=== PATIENT | female | born 1950 | race Caucasian/White ===

== ENCOUNTER → 2016-07-30 | Outpatient (CLI) | payer OTHER ==
[~2016-07-30] MED LIST: ALBU1AER9 INH; ASPI1TAB83 PO; B-COTAB18 PO; BACL10TA PO; BUPR100T8 PO; CALC-393 PO; CHOL1CAP30 PO; CLX20 PO; COEN1CAP46; FLUT0.15 NAE; GLUCTAB7 PO; INSUINJ7 SC; LIRA18IN SC; LOSA50TA6 PO; LPT/20 PO; METF1TAB85 PO; METO1TAB66 PO; MISC1CAP58 PO; MONT1TAB3 PO; MULT-877 PO; NVLNI SC; OMEGCAP2 PO; OMEP20CA59 PO; ULT/50 PO; VITA1CAP5 PO
--- NOTE | 2016-07-30 17:03 | MAMMOGRAPHY REPORT ---
BILATERAL DIGITAL SCREENING MAMMOGRAM WITH CAD: 07/30/2016 CLINICAL HISTORY: Routine screening. Patient has no complaints. TECHNIQUE: Current study was also evaluated with a Computer Aided Detection (CAD) system. Bilatera l CC and MLO views were obtained. COMPARISON: Comparison is made to exams dated: 07/25/2015 mammogram, 07/22/2013 mammogram, 07/20/2012 mammogram - [facility], 07/19/2009 mammogram, and 07/24/2014 mammogram - [facility]. BREAST COMPOSITION: There are scattered areas of fibroglandular density in both breasts. FINDINGS: No suspicious masses, calcifications, or areas of architectural distortion are noted in e ither breast. There has been no significant interval change compared to prior exams. A biopsy marke r clip and associated calcifications in the left upper outer quadrant are stable. Other bilateral b enign-appearing calcifications are not significantly changed. IMPRESSION: ACR BI-RADS CATEGORY 2: BENIGN There is no mammographic evidence of malignancy. A 1 year screening mammogram is recommended. The p atient will receive written notification of the results. Approximately 10% of breast cancers are not detected with mammography. A negative mammographic repor t should not delay biopsy if a clinically suggestive mass is present. Kelly Carballo M.D. ah/:07/30/2016 16:34:48 Wired Sweatband Cutter: Indira JOHNSON)([place]), [facility] letter sent: Normal 1/2 BI-RADS Code: ACR BI-RADS Category 2: Benign
== END | disposition home or self-care (01) ==
LOC: C.MAMM 09:17
PROVIDERS: ATTEND Internal Medicine
DX: Z12.31 Encounter for screening mammogram for malignant neoplasm of breast (principal)

== ENCOUNTER → 2016-09-30 | Outpatient (CLI) | payer OTHER ==
[~2016-09-30] MED LIST changes: +METO-452 PO; -METO1TAB66 PO
[2016-09-30 10:51] LABS: CALCIUM 9.4 mg/dl (8.5-10.1)
[2016-09-30 10:52] LABS: ESTIMATED AVERAGE GLUCOSE 166 mg/dl; HA1C FLAG Normal (Normal)
[2016-09-30 10:59] LABS: ALT/SGPT 24 U/L (12-78); AST/SGOT 12 U/L (15-37); BLOOD UREA NITROGEN 12 mg/dl (7-18); BUN/CREATININE RATIO 16.3 (10-20); CARBON DIOXIDE 28 mmol/L (21-32); CHLORIDE 105 mmol/L (98-107); CHOLESTEROL 153 mg/dl (0-200); CREATININE 0.71 mg/dl (0.60-1.20); GLUCOSE 139 mg/dl (70-99); POTASSIUM 4.3 mmol/L (3.5-5.1); SODIUM 141 mmol/L (136-145); TRIGLYCERIDES 110 mg/dl (0-150); VERY LOW DENSITY LIPOPROT CALC 22 mg/dl
[2016-09-30 11:09] LABS: ALB/GLOB RATIO 1.1 (0.9-2); ALKALINE PHOSPHATASE 76 U/L (45-117); CHOLESTEROL/HDL RATIO 2.4; HDL CHOLESTEROL 65 mg/dl; LDL CHOLESTEROL CALCULATED 66 mg/dl
[2016-09-30 11:36] LABS: RATIO 13.5 mcg/mg (0-30.0)
== END | disposition home or self-care (01) ==
LOC: C.LAB1850 08:59
PROVIDERS: ATTEND Internal Medicine
DX: E11.9 Type 2 diabetes mellitus without complications (principal)

== ENCOUNTER → 2016-10-13 | Outpatient (CLI) | payer OTHER ==
[~2016-10-13] MED LIST changes: +GADAVIST IV PRN
--- NOTE | 2016-10-13 10:32 | DIAGNOSTIC IMAGING REPORT ---
MRI OF THE BRAIN WITHOUT AND WITH IV CONTRAST CLINICAL HISTORY: ACOUSTIC NEUROMA, RIGHT SIDE COMPARISON STUDY: 04/21/2016 TECHNIQUE: MRI of the brain was performed from the vertex to the skull base utilizing various T1 and T2 weighted sequences. Following the IV administration of 12 mL of Gadavist contrast, additional enhanced images were obtained. The patient was imaged under 0.7 [place] open MRI scanner. FINDINGS: Sagittal T1, axial diffusion, proton density and T2 weighted axial, coronal FLAIR, and pre and post axial T1-weighted images were acquired. These were supplemented with post gadolinium coronal T1 weighted images. There is enhancing 6.2 x 2.5 x 2.1 cm right intracanalicular lesion, consistent with an acoustic neuroma. Also evident is an enhancing 8 mm extra-axial right middle cranial fossa mass abutting the cavernous sinus. This second lesion is consistent with a meningioma. Axial diffusion-weighted images reveal no evidence of acute or subacute infarction. There is no evidence of ventricular dilatation. Proton density T2-weighted and FLAIR images reveal scattered foci of increased T2 signal within the white matter, likely on a small vessel basis. There are no abnormal flow voids. With the exception of the enhancing right intracanalicular lesion and extra-axial right middle cranial fossa mass, there are no additional pathologically enhancing lesions. IMPRESSION: 1. 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 This is similar in size to the preceding study. 2. 8 mm enhancing right middle cranial fossa extra-axial mass, consistent with a meningioma. This also remains similar in size. 3. No evidence of acute or subacute infarction. Electronically signed by: Andres Manley M.D. 10/13/2016 10:31 AM Dictated Date/Time: 10/13/2016 10:20 AM
== END | disposition home or self-care (01) ==
LOC: C.OPENMRI 08:43
PROVIDERS: ATTEND Specialist
DX: D33.3 Benign neoplasm of cranial nerves (principal); G93.9 Disorder of brain, unspecified

== ENCOUNTER → 2017-04-21 | Outpatient (CLI) | payer OTHER ==
[~2017-04-21] MED LIST changes: -GADAVIST IV PRN
--- NOTE | 2017-04-21 09:25 | DIAGNOSTIC IMAGING REPORT ---
CHEST 2 VIEWS ROUTINE HISTORY: Z85.820 History of malignant melanoma of [id number] COMPARISON: Chest 06/14/2015. FINDINGS: The heart remains borderline enlarged. The lungs are clear. No pleural effusions. No pneumothorax. IMPRESSION: No significant change compared to the prior study. No acute process. Electronically signed by: Steven Padron M.D. 04/21/2017 9:24 AM Dictated Date/Time: 04/21/2017 9:21 AM
[2017-04-21 09:55] LABS: BLOOD UREA NITROGEN 13 mg/dl (7-18); BUN/CREATININE RATIO 16.7 (10-20); CALCIUM 9.1 mg/dl (8.5-10.1); CARBON DIOXIDE 30 mmol/L (21-32); CHLORIDE 103 mmol/L (98-107); CREATININE 0.81 mg/dl (0.60-1.20); GLUCOSE 159 mg/dl (70-99); POTASSIUM 4.3 mmol/L (3.5-5.1); SODIUM 138 mmol/L (136-145)
[2017-04-21 09:58] LABS: ALB/GLOB RATIO 0.9 (0.9-2); ALKALINE PHOSPHATASE 85 U/L (45-117); ALT/SGPT 24 U/L (12-78); AST/SGOT 18 U/L (15-37)
[2017-04-21 10:01] LABS: ESTIMATED AVERAGE GLUCOSE 143 mg/dl; HA1C FLAG Normal (Normal)
== END | disposition home or self-care (01) ==
LOC: C.LAB1850 08:28
PROVIDERS: ATTEND Internal Medicine
DX: E11.9 Type 2 diabetes mellitus without complications (principal); Z85.820 Personal history of malignant melanoma of skin

== ENCOUNTER → 2017-05-19 | Outpatient (CLI) | payer OTHER ==
[~2017-05-19] MED LIST changes: +GADAVIST IV PRN
--- NOTE | 2017-05-19 09:59 | DIAGNOSTIC IMAGING REPORT ---
MRI OF THE BRAIN AND IACS WITHOUT AND WITH IV CONTRAST CLINICAL HISTORY: ACOUSTIC NEUROMA, RIGHT SIDE MENINGIOMA COMPARISON STUDY: 10/13/2016 TECHNIQUE: MRI of the brain was performed from the vertex to the skull base utilizing various T1 and T2 weighted sequences. Following the IV administration of 11 mL of Gadavist contrast, additional enhanced images were obtained. FINDINGS: Sagittal T1, axial diffusion, proton density and T2 weighted axial, coronal FLAIR, and pre and post axial T1-weighted images were acquired. These were supplemented with post gadolinium coronal T1 weighted images. There is a right-sided enhancing intracanalicular mass measuring 7.2 x 2.1 x 2.8 mm. This is minimally larger than on the preceding studies. This lesion is most consistent with an acoustic neuroma. In addition, there is an enhancing extra-axial right middle cranial fossa mass abutting the right cavernous sinus measuring 9 mm. This second lesion is most consistent with a meningioma. Axial diffusion-weighted images reveal no evidence of acute or subacute infarction. There is no evidence of ventricular dilatation. Proton density T2-weighted and FLAIR images reveal scattered foci of increased T2 signal within the white matter, likely on a small vessel basis. There are no abnormal flow voids. No additional pathologically enhancing lesions are visualized. IMPRESSION: 1. Very slight interval increase in the size of the enhancing right internal auditory canal mass measuring 7.2 x 2.1 x 2.8 mm. 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 2. Very slight increase in the size of the right middle cranial fossa extra-axial mass, abutting the cavernous sinus. This is consistent with a meningioma. 3. No evidence of acute or subacute infarction Electronically signed by: Andres Manley M.D. 05/19/2017 9:57 AM Dictated Date/Time: 05/19/2017 9:48 AM
== END | disposition home or self-care (01) ==
LOC: C.MRIBC 08:49
PROVIDERS: ATTEND Specialist
DX: D33.3 Benign neoplasm of cranial nerves (principal)

== ENCOUNTER → 2017-07-28 | Outpatient (CLI) | payer OTHER ==
[~2017-07-28] MED LIST changes: -GADAVIST IV PRN; -LPT/20 PO; +LPT20 PO
[2017-07-28 10:53] LABS: HEMOGLOBIN A1C 6.6 % (4.5-5.6)
== END | disposition home or self-care (01) ==
LOC: C.LAB1850 09:07
PROVIDERS: ATTEND Nurse Practitioner Family
DX: E11.39 Type 2 diabetes mellitus with other diabetic ophthalmic complication (principal)

== ENCOUNTER → 2017-08-03 | Outpatient (CLI) | payer OTHER ==
--- NOTE | 2017-08-03 15:40 | MAMMOGRAPHY REPORT ---
BILATERAL DIGITAL SCREENING MAMMOGRAM TOMOSYNTHESIS WITH CAD: 08/03/2017 CLINICAL HISTORY: Routine screening. Patient has no complaints. TECHNIQUE: Breast tomosynthesis in addition to standard 2D mammography was performed. Current study was also evaluated with a Computer Aided Detection (CAD) system. COMPARISON: Comparison is made to exams dated: 07/30/2016 mammogram, 07/25/2015 mammogram, 07/24/2014 ma mmogram, 07/22/2013 mammogram, 07/20/2012 mammogram - [facility], and 07/19/2009 mammo gram. BREAST COMPOSITION: The tissue of both breasts is almost entirely fatty. FINDINGS: There is a small grouping of microcalcifications in the 2:00 to 3:00 middle one third of t he left breast, for which additional spot magnification views are recommended. There are are stable benign-appearing calcifications and associated metallic biopsy marker clip in th e upper outer approximate 1:00 left breast. Minimal vascular calcification in the breasts. No other suspicious mass, architectural distortion or cluster of microcalcifications is seen. IMPRESSION: ACR BI-RADS CATEGORY 0: INCOMPLETE EVALUATION: NEED ADDITIONAL IMAGING EVALUATION The small grouping of microcalcifications in the 2:00 to 3:00 middle one third of the left breast nee d additional evaluation. The patient will be called to schedule an appointment. Approximately 10% of breast cancers are not detected with mammography. A negative mammographic report should not delay biopsy if a clinically suggestive mass is present. Diane Byrd M.D. ay/:08/03/2017 13:29:25 Automatic Shirring Machine Operator: Yelena Watkins, [facility] letter sent: Addl Imaging 0 BI-RADS Code: ACR BI-RADS Category 0: Incomplete Evaluation: Need Additional Imaging Evaluation
== END | disposition home or self-care (01) ==
LOC: C.MAMM 09:33
PROVIDERS: ATTEND Internal Medicine
DX: Z12.31 Encounter for screening mammogram for malignant neoplasm of breast (principal); R92.0 Mammographic microcalcification found on diagnostic imaging of breast

== ENCOUNTER → 2017-08-12 | Outpatient (CLI) | payer OTHER ==
--- NOTE | 2017-08-12 15:37 | MAMMOGRAPHY REPORT ---
UNILATERAL LEFT DIGITAL DIAGNOSTIC MAMMOGRAM: 08/12/2017 CLINICAL HISTORY: Callback from screening mammogram for left breast calcifications. History of benig n biopsy of left breast calcifications in 2008 which reportedly yielded benign pathology. TECHNIQUE: Spot magnification left CC and ML views were obtained. COMPARISON: Comparison is made to exams dated: 08/03/2017 mammogram, 07/25/2015 mammogram, 07/30/2016 chirag mogram, 07/22/2013 mammogram, 07/24/2014 mammogram, and 07/20/2012 mammogram - [facility]. BREAST COMPOSITION: The tissue of the left breast is almost entirely fatty. FINDINGS: Spot magnification views demonstrate a small 2 mm cluster of slightly heterogeneous calcifi cations within the left lateral breast at approximately 3:00. The calcifications do not appear signi ficantly changed on full-field views from the 2016 and 2015 exams, and are probably benign given long -term stability. Additionally, the calcifications appear similar to calcifications in the left breas t which were previously biopsied at an outside institution and reportedly yielded benign pathology pe r the patient. The calcifications are probably benign and short interval follow-up is recommended. IMPRESSION: ACR-BI-RADS CATEGORY 3: PROBABLY BENIGN Small 2 mm cluster of calcifications within the left 3:00 breast is stable dating back to the 2015 ex am and is probably benign. Recommend follow-up diagnostic tomosynthesis mammograms of the left breas t in 6 months to confirm stability on spot magnification views. The patient has been verbally notified of the results. Approximately 10% of breast cancers are not detected with mammography. A negative mammographic report should not delay biopsy if a clinically suggestive mass is present. Kelly Carballo M.D. ah/:08/12/2017 09:36:47 Jewel Staker: Yelena Watkins, [facility] letter sent: Follow Up Recommended 3 BI-RADS Code: ACR-BI-RADS Category 3: Probably Benign
== END | disposition home or self-care (01) ==
LOC: C.MAMM 09:04
PROVIDERS: ATTEND Internal Medicine
DX: R92.0 Mammographic microcalcification found on diagnostic imaging of breast (principal); R92.1 Mammographic calcification found on diagnostic imaging of breast

== ENCOUNTER 2019-05-11 18:11 | Inpatient (IN) ==
[2019-05-11] MEDS ORDERED: SODIUM CHLORIDE 0.9% 1000ML 1,000 ML IV ONE ×2 (18:27→23:24)
[2019-05-11 19:06] LABS: Basophils # (auto) 0.02 K/uL (0-0.2); Basophils % (auto) 0.1 %; Eosinophils # (auto) 0.16 K/uL (0-0.5); Eosinophils % (auto) 1.1 %; Hematocrit (blood only) 39.5 % (37-47); Immature Granulocytes # (auto) 0.03 K/uL (0.00-0.02); Immature Granulocytes % (auto) 0.2 %; Lymphocytes # (auto) 2.03 K/uL (1.2-3.4); Lymphocytes % (auto) 13.6 %; Mean Corpuscular Hemoglobin 30.3 pg (25-34); Mean Corpuscular Hgb Conc 32.9 g/dL (32-36); Mean Corpuscular Volume 92.1 fL (80-100); Mean Platelet Volume 10.1 fL (7.4-10.4); Monocytes # (auto) 1.61 K/uL (0.11-0.59); Monocytes % (auto) 10.8 %; Neutrophils # (auto) 11.08 K/uL (1.4-6.5); Neutrophils % (auto) 74.2 %; Platelet Count 320 K/uL (130-400); RDW Coefficient of Variation 13.8 % (11.5-14.5); RDW Standard Deviation 46.7 fL (36.4-46.3); Red Blood Count 4.29 M/uL (4.2-5.4); White Blood Count 14.93 K/uL (4.8-10.8)
[2019-05-11 19:21] LABS: Prothrombin Time 10.3 Seconds (9.0-12.0)
[2019-05-11 19:24] LABS: Alanine Aminotransferase 27 U/L (12-78); Albumin Level 3.6 gm/dl (3.4-5.0); Aspartate Aminotransferase 14 U/L (15-37); BUN Creatinine Ratio 13.6 (10-20); Blood Urea Nitrogen 11 mg/dl (7-18); Carbon Dioxide 26 mmol/L (21-32); Chloride 104 mmol/L (98-107); Creatinine Clr Calc Pharmacy 77.9 ml/min; Est GFR (African American) 82.2; Est GFR (Non-African American) 70.9; Glucose 173 mg/dl (70-99); Lipase 120 U/L (73-393); Magnesium 2.1 mg/dl (1.8-2.4); Potassium 4.1 mmol/L (3.5-5.1); Sodium 136 mmol/L (136-145)
--- NOTE | 2019-05-11 19:25 | XRay Report ---
XR chest 1V portable CLINICAL HISTORY: Chest Pain pain COMPARISON STUDY: 07/23/2018 FINDINGS: Interstitial and bronchovascular prominence throughout both hemithoraces. Diaphragms are sm ooth. No significant pleural effusions. IMPRESSION: Developing components of congestive heart failure The above report was generated using voice recognition software. It may contain grammatical, syntax or spelling errors. Electronically signed by: Michael Groves M.D. 05/11/2019 7:24 PM
[2019-05-11 19:29] LABS: Albumin Globulin Ratio 0.9 (0.9-2); Alkaline Phosphatase 88 U/L (45-117); Bilirubin,Total 0.4 mg/dl (0.2-1); Globulin 3.9 gm/dl (2.5-4.0); Phosphorus 3.1 mg/dl (2.5-4.9); Total Protein 7.5 gm/dl (6.4-8.2); Troponin I < 0.015 ng/ml (0-0.045)
[2019-05-11] MEDS ORDERED: IOVERSOL 100ml IV PRN (19:44)
--- NOTE | 2019-05-11 20:14 | CT Scan Report ---
ABDOMEN AND PELVIS CT WITH IV CONTRAST CT DOSE: 1525.95 mGy.cm HISTORY: Generalized abd pain hematochezia TECHNIQUE: Multiaxial CT images of the abdomen and pelvis were performed following the use of intrave nous contrast. A dose lowering technique was utilized adhering to the principles of ALARA. COMPARISON STUDY: None. FINDINGS: A 2 mm nodule within the right lower lobe on image 40. The left lung base is clear. No pneu moperitoneum. No pneumatosis. No suspicious lytic are blastic osseous lesions. The liver, gallbladder , pancreas, spleen, adrenal glands, and kidneys are unremarkable. No retroperitoneal lymphadenopathy. Subcutaneous soft tissue thickening within the right left lower quadrant is likely due to prior medi cation injection. Normal bladder. The uterus is surgically absent. Mild thickening and pericolonic fa t stranding involving the distal descending colon and sigmoid colon. There are multiple diverticula a t this location. However, the long segment bowel wall thickening favors a nonspecific colitis. A dive rticulitis could also have a similar appearance but is considered less likely. No perforation or absc ess. No evidence for bowel obstruction. The major mesenteric vessels are patent. Normal appendix. IMPRESSION: 1. Mild thickening and pericolonic fat stranding involving the distal descending colon and sigmoid co adry. There are multiple diverticula at this location. However, the long segment bowel wall thickening favors a nonspecific colitis. A diverticulitis could also have a similar appearance but is considere d less likely. 2. A 2 mm right lower lobe nodule. Please refer to below summary of Fleischner criteria recommendations for follow-up of incidental CT n odules (Alicia Foley, Guidelines for management of small pulmonary nodules detected on CT scans: A sta tement from the Fleischner Society, Radiology 237: [phone].) SOLID NODULES Solitary nodule size: <6 mm * Low risk patients: no follow-up needed * high risk patients: optional CT at 12 months Solitary nodule size: 6-8 mm * Low risk patients: follow-up at 6-12 months, then consider further follow-up at 18-24 months * high risk patients: initial follow-up CT at 6-12 months and then at 18-24 months if no change Solitary nodule size: >8 mm * either low or high risk patients - consider follow-up CT at 3 months, and/or CT-PET, and/or biopsy Multiple nodules size: <6 mm * Low risk patients: no routine follow-up * high risk patients: optional CT at 12 months Multiple nodules size: 6-8 mm * Low risk patients: follow-up at 3-6 months, then consider further follow-up at 18-24 months * high risk patients: follow-up at 3-6 months, then at 18-24 months if no change Multiple nodules size: >8 mm * Low risk patients: follow-up at 3-6 months, then consider further follow-up at 18-24 months * high risk patients: follow-up at 3-6 months, then at 18-24 months if no change Note: newly detected indeterminate nodule in persons 35 years of age or older. * Low risk patients: minimal or absent history of smoking and/or other known risk factors * high risk patients: history of smoking or of other known risk factors (e.g. first degree relative with lung cancer, or exposure to asbestos, radon, uranium) * if a nodule up to 8 mm is partly solid or is ground glass further follow-up is required after 24 m ont to exclude possible slow growing adenocarcinoma (GEOVANNI) SUBSOLID NODULES Solitary pure ground-glass nodule * nodule size <6 mm - no CT follow-up required * nodule size >=6 mm - follow-up CT at 6-12 months, then every 2 years until 5 years Solitary part-solid nodule * nodule size <6 mm - no CT follow-up required * nodule size >=6 mm - follow-up CT at 3-6 months. If unchanged, and solid component remains <6 mm, then annual follow-up for 5 years Multiple subsolid nodules * nodule size <6 mm - follow-up CT at 3-6 months, consider further follow-up at 2 and 4 years if sta ble * nodule size >=6 mm - follow-up CT at 3-6 months, subsequent management based on the most suspiciou s nodule(s) Electronically signed by: Steven Padron M.D. 05/11/2019 8:13 PM
--- NOTE | 2019-05-11 21:21 | History & Physical Report ---
Date of Service May 11, 2019 Assessment & Plan (1) Sinus tachycardia: Ms. Villegas is a 68 year old woman with DMII, HTN, and depression here for BRBPR GI bleed Likely lower GI and infectious in nature with Diarrhea preceding and CT scan showing colitis Appears to be small amount of bleeding but will continue to monitor patient is tachycardic with stable pressures Admitted to med tele Due to tachycardia, ordered one more liter of NSS bolus and maintenance moving forward Will get orthostatic vitals Two large bore Iv's Type and cross GI consulted Patient NPO Stool culture and C. Diff pending Will hope to hold off on any antibiotic and manage supportively 2/2 concern for HUS and patient's generally well state. DMII Will supplement insulin while here in hospital Holding home metformin sliding scale in place NPO for now HTN Holding [id number] continue metoprolol Tachycardia Described as sinus tach at baseline On metoprolol Will continue to monitor as hypovolemia could be exacerbating it On telemetry F/E/N: bolus 2 L then NSS 80 mls/hour DVT PPx: Contraindicated 2/2 bleeding Dipso: Med-Tele Gi consult stool cultures pending (2) Obesity, morbid, BMI 40.0-49.9: (3) Meningioma: (4) Hypertension: (5) History of malignant melanoma of skin: (6) GERD without esophagitis: (7) Dyslipidemia: (8) Depression with anxiety: (9) Type 2 diabetes mellitus with complications: (10) GI bleed: (11) Hematochezia: History of Present Illness Chief Complaint: Bright red blood per rectum Primary Care Provider: Ashely Flores MD Ms. Evie Villegas is a 68 year old woman with a past medical history of DMII, HTN, HLD, depression, melanoma, and meningioma who presents for a one day history of abdominal pain, diarrhea, and BRBPR. She woke up this morning around 3 am and noted some mild abdominal pain that became progressively worse. She describes the pain as a squeezing or cramping pain that waxes and wanes. She found it difficult to localize but noted it in her lower abdomen mostly. She began to have diarrhea around 330 am and continued throughout the morning. She noted no blood for the first several episodes, but did start to feel lightheaded after using restroom. She said it felt like she was about to faint and she just laid down on her bed. This resolved and she continued having to use the restroom and eventually she had some bright red blood. She says it was a small collection of it in the toilet bowl maybe half dollar size but difficult to quantify. She mostly noticed it prominently on the toilet paper when she went to [facility]. She decided to come in to the emergency department because of the bleeding and continuing abdominal pain. in the emergency department she was found to be tachycardic (though interestingly she says she always is sinus tachycardic at baseline rarely under 100 bpm) but her pressures remained stable. She was given 1 L NSS bolus. Labs showed no major deviation in her hemoglobin from baseline 13.7 [address] scan of the abdomen shows colitis of the large intestine, with several diverticuli present. She otherwise has been well recently, she denies any fevers, chills, nausea or vomiting, breathing difficulties chest pain, shortness of breath, leg swelling, or any other acute or recent symptoms besides the diarrhea, bleeding, abdominal pain, and lightheadedness. Allergies Allergy/AdvReac Type Severity Reaction Status Date / Time Bactrim AdvReac Mild VOMITING Verified 05/09/16 13:25 erythromycin base AdvReac Mild VOMITING Verified 04/21/19 13:26 morphine AdvReac Mild GI SYMPTOMS Verified 04/21/19 13:26 penicillin G AdvReac Mild VOMITING Verified 04/21/19 13:26 sulfamethoxazole AdvReac Mild VOMITING Verified 04/21/19 13:26 trimethoprim AdvReac Mild VOMITING Verified 04/21/19 13:26 PERCH FISH Allergy Anaphylaxis Uncoded 05/11/19 21:25 Home Medications Home Medications Medication Instructions Recorded Confirmed Type baclofen 10 mg tablet 10 mg PO DAILY #90 tab 12/08/18 04/21/19 Rx losartan 50 mg tablet 50 mg PO DAILY #30 tab 03/07/19 04/21/19 Rx aspirin 81 mg tablet,delayed 81 mg PO DAILY 04/16/19 04/16/19 History release atorvastatin 20 mg tablet 20 mg PO QPM 04/16/19 04/16/19 History calcium carbonate 600 mg calcium 600 mg PO BID 04/16/19 04/16/19 History (1,500 mg) tablet insulin NPH isoph U-100 human 100 44 units SQ QPM ml 04/16/19 04/16/19 History human 100 unit/mL subcutaneous suspension insulin regular human 100 regular 15 - 30 units SQ TIDM ml 04/16/19 04/16/19 History human 100 unit/mL injection solution liraglutide 0.6 mg/0.1 mL (18 mg/3 1.2 mg SQ DAILY ml 04/16/19 04/16/19 History mL) subcutaneous pen injector metformin 500 mg 24 hr 1,000 mg PO BID tab 04/16/19 04/16/19 History tablet,extended release montelukast 10 mg tablet 10 mg PO QPM 04/16/19 04/16/19 History tramadol 50 mg tablet 50 mg PO QPM PRN tab 04/16/19 04/21/19 History cholecalciferol (vitamin D3) 25 2,000 units PO DAILY cap 04/17/19 04/17/19 History mcg (1,000 unit) capsule coenzyme Q10 100 mg capsule 100 mg PO DAILY 04/17/19 04/17/19 History glucosamine HCl 1,500 mg tablet 1,500 mg PO DAILY 04/17/19 04/17/19 History lutein 20 mg tablet 20 mg PO DAILY 04/17/19 04/17/19 History multivitamin 1 tab PO DAILY 04/17/19 04/17/19 History omega-3 fatty acids 1,000 mg 1,000 mg PO DAILY 04/17/19 04/17/19 History capsule vitamin B complex 1 tab PO DAILY 04/17/19 04/17/19 History vitamin E (dl, acetate) 400 unit 400 units PO DAILY 04/17/19 04/17/19 History capsule citalopram 20 mg tablet 20 mg PO DAILY #90 tab 04/25/19 Rx metoprolol succinate 50 mg 50 mg PO DAILY #30 tab 04/25/19 Rx tablet,extended release 24 hr omeprazole 20 mg capsule,delayed 20 mg PO HS #30 cap 05/09/19 Rx release Past Med/Surg History Medical History (Updated 05/11/19 @ 22:17 by Buck Richard MD) Acquired hammer toe of right foot (Acute) 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) Asthma (Acute) Asymmetrical hearing loss (Acute) Background diabetic retinopathy associated with type 2 diabetes mellitus (Acute) Breast calcification, left (Acute) Callus (Acute) Cataract (Acute) Claustrophobia (Acute) Closed head injury (Inactive) Depression with anxiety (Acute) Diabetes mellitus with diabetic polyneuropathy (Acute) Dyslipidemia (Acute) GERD without esophagitis (Acute) Hallux rigidus, right foot (Acute) History of malignant melanoma of skin (Acute) Hypertension (Acute) Left knee pain (Inactive) Loss of protective sensation of skin of foot (Acute) Meningioma (Acute) Obesity, morbid, BMI 40.0-49.9 (Acute) Right acoustic neuroma (Acute) Sinus tachycardia (Acute) Stenosis of cervical spine with myelopathy (Acute) Vitamin D deficiency disease (Acute) Surgical History History of back surgery S/P carpal tunnel release S/P foot surgery, left S/P foot surgery, right S/P hysterectomy S/P tonsillectomy S/P total knee arthroplasty Social History Preferred Language: Occitan Communication Ability: Effective marital status: Single Current Living Situation: Alone current occupational status: retired Feels Safe at Home: Yes Smoking Status: Never smoker Hx Alcohol Use: Yes (social) Hx Substance Use: No Physical Activity Frequency: Daily Seatbelt Use: always Review of Systems Constitutional: no fever, no chills, no sweats, no fatigue, no weakness, no weight loss and no weight gain Eyes: no problem reported Respiratory: no cough, no dyspnea and no wheezing Cardiovascular: + lightheadedness; no chest pain, no dyspnea, no palpitations, no syncope and no calf pain Gastrointestinal: + abdominal pain, + diarrhea/loose stools and + blood in stools; no nausea, no vomiting and no melena Genitourinary: no problem reported Integumentary: no new lesions Physical Exam Constitutional: + morbidly obese; no acute distress and not ill appearing Eyes: PERRL, conjunctivae normal, anicteric sclerae ENMT: external ear and nose normal, oropharynx normal Respiratory: normal respiratory effort, lungs clear to auscultation Cardiovascular: Rate/Rhythm: regular rhythm and + tachycardic Heart Sounds: normal S1 and normal S2; no click, no gallop, no murmur and no cardiac rub Vessels: normal peripheral pulses Gastrointestinal (Abdomen): Inspection/Auscultation: abdomen normal to inspection Percussion/Palpation: + abdomen tender (tenderness over umbilicus and in right lower quadrant) and abdomen soft; no abdominal mass Rectal Exam: + heme positive stool Skin: no rashes, warm and dry Results & Data Vital Signs (Past 12 Hours) Vital Signs Temp Pulse Resp BP Pulse Ox 05/11/19 21:12 120 H 20 147/108 H 98 05/11/19 18:14 36.4 C L 119 H 20 150/83 H 97 Supervising Physician Co-Signing Physician Notes I personally interviewed and examined the patient. I agree with history of present illness and physical exam mentioned above, I also performed my own history taking and examination. Past medical history and review of system has been obtained by myself I reviewed all pertinent labs and studies Reviewed current medications I discussed and formulated of the assessment and plan mentioned above. Please refer to the Summary mentioned below. 68-year-old female with past medical history of diabetes mellitus type 2, insulin requiring, essential hypertension, dyslipidemia, benign brain tumor braden ng watched by neurologist, left maxillary fungal infection being watched by primary care physician, Deny melanoma in the right eye currently in remission. Patient presented to the ED with generalized abdominal pain crampy in nature with diarrhea and lower GI bleed. Patient boyfriend thinks that an egg salad she ate yesterday was the suspicious food that caused this. She denies any vomiting, nausea, fever but felt some chills. In ED her hemoglobin was fairly stable with minimal drop but it could be too early to evaluate that. Patient will be admitted for further evaluation and management, will hold off antibiotics to avoid HUS since she is hemodynamically stable treat with IV fluid hydration, consult GI, hold her insulin, start her on sliding scale only as she is n.p.o., further recommendation will follow. General Appearance: Obese, not in acute distress Eyes: Right eye red sclerae, extraocular muscle intact ENT: hearing grossly normal Neck: supple Respiratory/Chest: normal air entry bilateral ,no respiratory distress, no accessory muscle use Cardiovascular: regular rate, rhythm, no murmur Abdomen: Bilateral lower abdominal tender, soft, no masses Extremities: no edema musculoskeletal: no significant swelling or inflammation in any joint Neurologic/Psychiatric: Awake alert oriented times place and person moves all extremities sensation intact cranial nerves II-12 appear to be intact Skin: normal color, warm/dry, no rash Jerome Moe MD, [facility] Resident Activity Tracking Resident Involvement: Resident Care Provided Care Provided: Adult Hospital Medicine
--- NOTE | 2019-05-11 22:37 | Billing Data ---
Coding Level of Care Code 43309 Initial Inpt Care Lvl 3
[2019-05-11] MEDS ORDERED: GLUCAGON FOR INJ 1 MG VIAL SQ PRN (23:24)
[2019-05-11] MEDS ORDERED: GLUCOSE 10 TABS/TUBE PO PRN (23:24)
[2019-05-11] MEDS ORDERED: DC ALL PREVIOUSLY ORDERED DIABETES MEDS ONE (23:24)
[2019-05-11] MEDS ORDERED: DEXTROSE 50% 50 ML SYRINGE IV PRN (23:24)
[2019-05-11] MEDS ORDERED: CARBOHYDRATES FOR HYPOGLYCEMIA PO PRN (23:24)
[2019-05-11] MEDS ORDERED: GLUCOSE 40% GEL 15 GM TUBE PO PRN (23:24)
[2019-05-11] MEDS ORDERED: TRAMADOL HCL 50 MG TABLET PO PRN (23:24)
[2019-05-11 23:42] LABS: Hematocrit (blood only) 39.5 % (37-47); Hemoglobin 12.9 g/dL (12.0-16.0); Mean Corpuscular Hemoglobin 30.1 pg (25-34); Mean Corpuscular Hgb Conc 32.7 g/dL (32-36); Mean Corpuscular Volume 92.1 fL (80-100); Platelet Count 301 K/uL (130-400); RDW Standard Deviation 46.9 fL (36.4-46.3); Red Blood Count 4.29 M/uL (4.2-5.4); White Blood Count 12.76 K/uL (4.8-10.8)
[2019-05-11] MEDS ORDERED: PHARMACY GLYCEMIC MGMT CONSULT PRN (23:42)
[2019-05-11] MEDS ORDERED: INSULIN ASPART 100 UNITS/ML 3 ML PEN SC STA (23:44)
[2019-05-11] MEDS ORDERED: SODIUM CHLORIDE 0.9% 1000ML 1,000 ML IV SCH (23:45)
--- NOTE | 2019-05-12 00:14 | Emergency Department Note ---
Entered by Whitney Lau acting as a scribe for Dm Jerez MD History of Present Illness General Chief complaint: Rectal Bleed Stated complaint: RECTALLY BLEEDING Time Seen by Provider: 05/11/19 18:22 History of Present Illness Provider complaint: bloody diarrhea Onset (ago): hour(s) (15) Pain Consistency: + other (episode) Maximum Pain Intensity: 8 Quality: + other (bloody diarrhea) Associated symptoms: + other (diarrhea started at 0330 this morning, noticed bright red blood later, now just blood and no stool, over 10 episodes, takes baby aspirin, no antibiotic use) Treatments prior to arrival: none The patient is a 68 year old female who presents to the ED with complaints of an episode of bloody diarrhea that started 15 hours ago. The patient states that she started to have several bouts of diarrhea this morning at 0330 this morning. The patient states that as the morning progressed, she started noticing bright red blood in her diarrhea. The patient states that she now only has bright red blood present with no stool when she tries to move her bowels. The patient notes that she has gone well over 10 times today. The patient notes that she takes a baby aspirin daily, but she denies antibiotic use. The patient denies taking any treatments prior to arrival. Home Medications Home Medications Medication Instructions Recorded Confirmed Type baclofen 10 mg tablet 10 mg PO DAILY #90 tab 12/08/18 05/11/19 Rx losartan 50 mg tablet 50 mg PO DAILY #30 tab 03/07/19 05/11/19 Rx aspirin 81 mg tablet,delayed 81 mg PO DAILY 04/16/19 05/11/19 History release atorvastatin 20 mg tablet 20 mg PO QPM 04/16/19 05/11/19 History calcium carbonate 600 mg calcium 600 mg PO BID 04/16/19 05/11/19 History (1,500 mg) tablet insulin NPH isoph U-100 human 100 44 units SQ QPM ml 04/16/19 05/11/19 History human 100 unit/mL subcutaneous suspension insulin regular human 100 regular 15 - 30 units SQ TIDM ml 04/16/19 05/11/19 History human 100 unit/mL injection solution liraglutide 0.6 mg/0.1 mL (18 mg/3 1.2 mg SQ DAILY ml 04/16/19 05/11/19 History mL) subcutaneous pen injector metformin 500 mg 24 hr 1,000 mg PO BID tab 04/16/19 05/11/19 History tablet,extended release montelukast 10 mg tablet 10 mg PO QPM 04/16/19 05/11/19 History tramadol 50 mg tablet 50 mg PO QPM PRN tab 04/16/19 05/11/19 History cholecalciferol (vitamin D3) 25 2,000 units PO DAILY cap 04/17/19 05/11/19 History mcg (1,000 unit) capsule coenzyme Q10 100 mg capsule 100 mg PO DAILY 04/17/19 05/11/19 History glucosamine HCl 1,500 mg tablet 1,500 mg PO DAILY 04/17/19 05/11/19 History lutein 20 mg tablet 20 mg PO DAILY 04/17/19 05/11/19 History multivitamin 1 tab PO DAILY 04/17/19 05/11/19 History omega-3 fatty acids 1,000 mg 1,000 mg PO DAILY 04/17/19 05/11/19 History capsule vitamin B complex 1 tab PO DAILY 04/17/19 05/11/19 History vitamin E (dl, acetate) 400 unit 400 units PO DAILY 04/17/19 05/11/19 History capsule citalopram 20 mg tablet 20 mg PO DAILY #90 tab 04/25/19 05/11/19 Rx metoprolol succinate 50 mg 50 mg PO DAILY #30 tab 04/25/19 05/11/19 Rx tablet,extended release 24 hr omeprazole 20 mg capsule,delayed 20 mg PO HS #30 cap 05/09/19 05/11/19 Rx release Allergies Allergy/AdvReac Type Severity Reaction Status Date / Time Bactrim AdvReac Mild VOMITING Verified 05/09/16 13:25 erythromycin base AdvReac Mild VOMITING Verified 05/11/19 22:41 morphine AdvReac Mild GI SYMPTOMS Verified 05/11/19 22:41 penicillin G AdvReac Mild VOMITING Verified 05/11/19 22:41 sulfamethoxazole AdvReac Mild VOMITING Verified 05/11/19 22:42 trimethoprim AdvReac Mild VOMITING Verified 04/21/19 13:26 PERCH FISH Allergy Anaphylaxis Uncoded 05/11/19 21:25 Past Med/Surg History Medical History Acquired hammer toe of right foot (Acute) 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) Asthma (Acute) Asymmetrical hearing loss (Acute) Background diabetic retinopathy associated with type 2 diabetes mellitus (Acute) Breast calcification, left (Acute) Callus (Acute) Cataract (Acute) Claustrophobia (Acute) Closed head injury (Inactive) Depression with anxiety (Acute) Diabetes mellitus with diabetic polyneuropathy (Acute) Dyslipidemia (Acute) GERD without esophagitis (Acute) Hallux rigidus, right foot (Acute) History of malignant melanoma of skin (Acute) Hypertension (Acute) Left knee pain (Inactive) Loss of protective sensation of skin of foot (Acute) Meningioma (Acute) Obesity, morbid, BMI 40.0-49.9 (Acute) Right acoustic neuroma (Acute) Sinus tachycardia (Acute) Stenosis of cervical spine with myelopathy (Acute) Vitamin D deficiency disease (Acute) Surgical History History of back surgery S/P carpal tunnel release S/P foot surgery, left S/P foot surgery, right S/P hysterectomy S/P tonsillectomy S/P total knee arthroplasty Family History Mother Breast cancer Diabetes Father Diabetes Hyperlipidemia Brother Diabetes Grandmother (Paternal) Congestive heart failure Social History Preferred Language: Portuguese Communication Ability: Effective 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 and A total of 10 systems reviewed and were otherwise negative Physical Exam Vital Signs Vital Signs - 24 hr 05/11/19 18:14 05/11/19 21:12 Temperature 36.4 C L Temperature Source Oral Pulse Rate 119 H 120 H Respiratory Rate 20 20 Blood Pressure 150/83 H 147/108 H Blood Pressure Mean 105 121 Pulse Oximetry 97 98 Oxygen Delivery Method Room Air Room Air Sepsis Recent Fever Within 48 Hours No Sepsis New/Unexplained Change in Mental Status No Sepsis Action Taken by Nursing No Action Required GENERAL: Awake, alert, well-appearing, in no distress, BMI is 45.5 HENT: Normocephalic, atraumatic. Oropharynx with dry mucous membranes and otherwise unremarkable. . EYES: Normal conjunctiva. Sclera non-icteric. NECK: Supple. No nuchal rigidity. FROM. No JVD. RESPIRATORY: Clear to auscultation bilaterally. CARDIAC: Tachycardic rate, normal rhythm. Extremities warm and well perfused. Pulses equal. ABDOMEN: Soft, non-distended. No tenderness to palpation. No rebound or guarding. No masses. RECTAL: Scant red blood, no gross melena. MUSCULOSKELETAL: Chest examination reveals no tenderness. The back is symmetrical on inspection without obvious abnormality. There is no CVA tenderness to palpation. No joint edema. LOWER EXTREMITIES: Calves are equal size bilaterally and non-tender. No edema. No discoloration. NEURO: Normal sensorium. No sensory or motor deficits noted. SKIN: No rash or jaundice noted. Course Course 182: Past medical records reviewed. The patient was evaluated in room B7. A complete history and physical exam was performed. 2016: I discussed the [facility] He will evaluate the patient for further management. Consultations Consultation #1: I discussed the patient's [facility] He will evaluate the patient for further management. Time: 20:16 Administered Medications Sodium Chloride (Nss 1000ml) 1,000 mls @ 80 mls/hr IV .[id number] GEENA Stop: 06/10/19 23:44 Last Admin: 05/12/19 00:42 Dose: 80 mls/hr Documented by: [id number] Discontinued Medications Sodium Chloride (Nss 1000ml) 1,000 mls @ 999 mls/hr IV .Q1H1M ONE Stop: 05/11/19 19:27 Last Infusion: 05/11/19 19:59 Dose: 0 mls/hr Documented by: [id number] Admin: 05/11/19 18:50 Dose: 999 mls/hr Documented by: [id number] Sodium Chloride (Nss 1000ml) 1,000 mls @ 999 mls/hr IV .Q1H1M ONE Stop: 05/12/19 00:24 Last Admin: 05/12/19 00:47 Dose: Not Given Documented by: [id number] Insulin Aspart (Novolog Flexpen) 0 units SC NOW STA Stop: 05/11/19 23:45 Last Admin: 05/12/19 00:46 Dose: Not Given Documented by: [id number] Cosigned by: [id number] Ioversol (Optiray 320 100ml) 92 ml IV ONCE PRN PRN Reason: Interaction Checking Stop: 05/15/19 19:43 Last Admin: 05/11/19 19:44 Dose: 1 ml Documented by: [id number] Miscellaneous Information (Dc All Previously Ordered Diabetes Meds) 1 ea N/A ONE ONE Stop: 05/11/19 23:25 Last Admin: 05/12/19 00:46 Dose: Not Given Documented by: [id number] Medical Decision Making Differential Diagnosis Differential diagnosis: Etiologies such as esophagitis, variceal bleed, [place], [place] tear, gastritis, peptic ulcer disease, AVM, inflammatory bowel disease, ischemia, diverticulosis, colitis, malignancy, coagulopathy, thrombocytopenia, fissure, hemorrhoid, epistaxis , as well as others were entertained. Medical Records Attestation: I reviewed the patient's medical records. Home Medications Current Medication List: was personally reviewed by me Laboratory Data Attestation: I reviewed the patient's lab results. Result diagrams: 05/11/19 23:32 05/11/19 18:47 Lab Results 05/11/19 05/11/19 05/11/19 Range/Units 18:47 18:47 18:47 WBC 14.93 H (4.8-10.8) K/uL RBC 4.29 (4.2-5.4) M/uL Hgb 13.0 (12.0-16.0) g/dL Hct 39.5 (37-47) % MCV 92.1 (80-100) fL MCH 30.3 (25-34) pg MCHC 32.9 (32-36) g/dL RDW Std Deviation 46.7 H (36.4-46.3) fL RDW Coeff of Willian 13.8 (11.5-14.5) % Plt Count 320 (130-400) K/uL MPV 10.1 (7.4-10.4) fL Immature Gran % (Auto) 0.2 % Neut % (Auto) 74.2 % Lymph % (Auto) 13.6 % [place] % (Auto) 10.8 % Eos % (Auto) 1.1 % Baso % (Auto) 0.1 % Immature Gran # (Auto) 0.03 H (0.00-0.02) K/uL Neut # (Auto) 11.08 H (1.4-6.5) K/uL Lymph # (Auto) 2.03 (1.2-3.4) K/uL [place] # (Auto) 1.61 H (0.11-0.59) K/uL Eos # (Auto) 0.16 (0-0.5) K/uL Baso # (Auto) 0.02 (0-0.2) K/uL PT 10.3 (9.0-12.0) Seconds INR 1.0 (0.9-1.1) Sodium 136 (136-145) mmol/L Potassium 4.1 (3.5-5.1) mmol/L Chloride 104 (98-107) mmol/L Carbon Dioxide 26 (21-32) mmol/L Anion Gap 6.0 (3-11) BUN 11 (7-18) mg/dl Creatinine 0.84 (0.6-1.2) mg/dl Est Cr Clr Drug Dosing 77.9 ml/min Est GFR ( Amer) 82.2 Est GFR (Non-Af Amer) 70.9 BUN/Creatinine Ratio 13.6 (10-20) Glucose 173 H (70-99) mg/dl Calcium 9.0 (8.5-10.1) mg/dl Phosphorus 3.1 (2.5-4.9) mg/dl Magnesium 2.1 (1.8-2.4) mg/dl Total Bilirubin 0.4 (0.2-1) mg/dl AST 14 L (15-37) U/L ALT 27 (12-78) U/L Alkaline Phosphatase 88 (45-117) U/L Troponin I < 0.015 (0-0.045) ng/ml Total Protein 7.5 (6.4-8.2) gm/dl Albumin 3.6 (3.4-5.0) gm/dl Globulin 3.9 (2.5-4.0) gm/dl Albumin/Globulin Ratio 0.9 (0.9-2) Lipase 120 (73-393) U/L Blood Type Antibody Screen 05/11/19 Range/Units 19:03 WBC (4.8-10.8) K/uL RBC (4.2-5.4) M/uL Hgb (12.0-16.0) g/dL Hct (37-47) % MCV (80-100) fL MCH (25-34) pg MCHC (32-36) g/dL RDW Std Deviation (36.4-46.3) fL RDW Coeff of Willian (11.5-14.5) % Plt Count (130-400) K/uL MPV (7.4-10.4) fL Immature Gran % (Auto) % Neut % (Auto) % Lymph % (Auto) % [place] % (Auto) % Eos % (Auto) % Baso % (Auto) % Immature Gran # (Auto) (0.00-0.02) K/uL Neut # (Auto) (1.4-6.5) K/uL Lymph # (Auto) (1.2-3.4) K/uL [place] # (Auto) (0.11-0.59) K/uL Eos # (Auto) (0-0.5) K/uL Baso # (Auto) (0-0.2) K/uL PT (9.0-12.0) Seconds INR (0.9-1.1) Sodium (136-145) mmol/L Potassium (3.5-5.1) mmol/L Chloride (98-107) mmol/L Carbon Dioxide (21-32) mmol/L Anion Gap (3-11) BUN (7-18) mg/dl Creatinine (0.6-1.2) mg/dl Est Cr Clr Drug Dosing ml/min Est GFR ( Amer) Est GFR (Non-Af Amer) BUN/Creatinine Ratio (10-20) Glucose (70-99) mg/dl Calcium (8.5-10.1) mg/dl Phosphorus (2.5-4.9) mg/dl Magnesium (1.8-2.4) mg/dl Total Bilirubin (0.2-1) mg/dl AST (15-37) U/L ALT (12-78) U/L Alkaline Phosphatase (45-117) U/L Troponin I (0-0.045) ng/ml Total Protein (6.4-8.2) gm/dl Albumin (3.4-5.0) gm/dl Globulin (2.5-4.0) gm/dl Albumin/Globulin Ratio (0.9-2) Lipase (73-393) U/L Blood Type A Negative Antibody Screen NEGATIVE Imaging Data Radiologist's Impression: Radiology results as stated below per my review and the radiologist's interpretation: XR chest 1V portable CLINICAL HISTORY: Chest Pain pain COMPARISON STUDY: 07/23/2018 FINDINGS: Interstitial and bronchovascular prominence throughout both hemithoraces. Diaphragms are smooth. No significant pleural effusions. IMPRESSION: Developing components of congestive heart failure The above report was generated using voice recognition software. It may contain grammatical, syntax or spelling errors. Electronically signed by: Michael Groves M.D. 05/11/2019 7:24 PM ABDOMEN AND PELVIS CT WITH IV CONTRAST CT DOSE: 1525.95 mGy.cm HISTORY: Generalized abd pain hematochezia TECHNIQUE: Multiaxial CT images of the abdomen and pelvis were performed following the use of intravenous contrast. A dose lowering technique was utilized adhering to the principles of ALARA. COMPARISON STUDY: None. FINDINGS: A 2 mm nodule within the right lower lobe on image 40. The left lung base is clear. No pneumoperitoneum. No pneumatosis. No suspicious lytic are blastic osseous lesions. The liver, gallbladder, pancreas, spleen, adrenal glands, and kidneys are unremarkable. No retroperitoneal lymphadenopathy. Subcutaneous soft tissue thickening within the right left lower quadrant is likely due to prior medication injection. Normal bladder. The uterus is surgically absent. Mild thickening and pericolonic fat stranding involving the distal descending colon and sigmoid colon. There are multiple diverticula at this location. However, the long segment bowel wall thickening favors a nonspecific colitis. A diverticulitis could also have a similar appearance but is considered less likely. No perforation or abscess. No evidence for bowel obstruction. The major mesenteric vessels are patent. Normal appendix. IMPRESSION: 1. Mild thickening and pericolonic fat stranding involving the distal descending colon and sigmoid colon. There are multiple diverticula at this location. However, the long segment bowel wall thickening favors a nonspecific colitis. A diverticulitis could also have a similar appearance but is considered less likely. 2. A 2 mm right lower lobe nodule. Please refer to below summary of Fleischner criteria recommendations for follow- up of incidental CT nodules (Alicia Foley, Guidelines for management of small pulmonary nodules detected on CT scans: A statement from the Fleischner Society, Radiology 237: [phone].) SOLID NODULES Solitary nodule size: <6 mm * Low risk patients: no follow-up needed * high risk patients: optional CT at 12 months Solitary nodule size: 6-8 mm * Low risk patients: follow-up at 6-12 months, then consider further follow-up at 18-24 months * high risk patients: initial follow-up CT at 6-12 months and then at 18-24 months if no change Solitary nodule size: >8 mm * either low or high risk patients - consider follow-up CT at 3 months, and/or CT-PET, and/or biopsy Multiple nodules size: <6 mm * Low risk patients: no routine follow-up * high risk patients: optional CT at 12 months Multiple nodules size: 6-8 mm * Low risk patients: follow-up at 3-6 months, then consider further follow-up at 18-24 months * high risk patients: follow-up at 3-6 months, then at 18-24 months if no change Multiple nodules size: >8 mm * Low risk patients: follow-up at 3-6 months, then consider further follow-up at 18-24 months * high risk patients: follow-up at 3-6 months, then at 18-24 months if no change Note: newly detected indeterminate nodule in persons 35 years of age or older. * Low risk patients: minimal or absent history of smoking and/or other known risk factors * high risk patients: history of smoking or of other known risk factors (e.g. first degree relative with lung cancer, or exposure to asbestos, radon, uranium) * if a nodule up to 8 mm is partly solid or is ground glass further follow-up is required after 24 months to exclude possible slow growing adenocarcinoma (GEOVANNI) SUBSOLID NODULES Solitary pure ground-glass nodule * nodule size <6 mm - no CT follow-up required * nodule size >=6 mm - follow-up CT at 6-12 months, then every 2 years until 5 years Solitary part-solid nodule * nodule size <6 mm - no CT follow-up required * nodule size >=6 mm - follow-up CT at 3-6 months. If unchanged, and solid component remains <6 mm, then annual follow-up for 5 years Multiple subsolid nodules * nodule size <6 mm - follow-up CT at 3-6 months, consider further follow-up at 2 and 4 years if stable * nodule size >=6 mm - follow-up CT at 3-6 months, subsequent management based on the most suspicious nodule(s) Electronically signed by: Steven Padron M.D. 05/11/2019 8:13 PM ECG Data Attestation: I personally reviewed and interpreted this ECG as follows: Indication: + weakness Rate (beats per minute): 105 Rhythm: + sinus tachycardia ECG [place]: + Normal ECG ST segments: no ST depression and no ST elevation ECG Findings: + Other (QTC 459); no PACs and no PVCs Comparison ECG Date: from (08/09/2013) Change: no significant change Blood Pressure Blood Pressure Findings: Elevated blood pressure Blood Pressure Disposition: further management by hospitalist MDM Narrative The patient is a pleasant 68-year-old woman who presents emergency department with rectal bleeding per HPI. On arrival patient is no acute distress, afebrile, HR 100s and otherwise stable vital signs. On exam the patient appears clinically dry. She does exhibit scant red blood on rectal exam that is Hemoccult positive. Abdomen is relatively benign with only mild discomfort in the lower abdomen. No guarding or rebound. EKG unremarkable without evidence of acute ischemia. CXR with possible developing vascular congestion but patient is without respiratory sx. WBC 12.7, nonspecific. H/H and platelets within normal limits. Chemistry without acidosis. Electrolytes and LFTs unremarkable. Troponin negative/undetectable. Lipase within normal limits. CT abdomen pelvis demonstrates evidence of colitis. Given the patient's hematochezia in setting of CT findings reasonable admit the patient for further management/monitoring. Patient is agreeable with this. C. difficile was ne gative. Stool cultures pending. Will defer antibiotics until cultures result given bloody diarrhea. Case was discussed with Dr. Vela, [facility] hospitalist, who will evaluate the patient for admission. Impression & Plan Colitis, Hematochezia, Leukocytosis, Tachycardia Discharge Plan Visit Data *Final* Discharge Date/Time: 05/11/19 22:29 Chief Complaint: Rectal Bleed Stated Complaint: RECTALLY BLEEDING ED Provider: Cross,Dm E Discharge Problem: Colitis, Hematochezia, Leukocytosis, Tachycardia Patient Disposition: Admitted As Inpatient Discharge Instructions Interventions: ED Discharge Assessment Last Done: 05/11/19 22:29 The scribe's documentation has been prepared under my direction and personally reviewed by me in its entirety. I confirm that the note above accurately reflects all work, treatment, procedures, and medical decision making performed by me.
[2019-05-12] MEDS: INSULIN ASPART 100 UNITS/ML 3 ML PEN SC SCH ×2 (06:19→12:53)
[2019-05-12 06:43] LABS: Hematocrit (blood only) 38.1 % (37-47); Hemoglobin 12.4 g/dL (12.0-16.0); Mean Corpuscular Hemoglobin 29.9 pg (25-34); Mean Corpuscular Hgb Conc 32.5 g/dL (32-36); Mean Corpuscular Volume 91.8 fL (80-100); Mean Platelet Volume 10.1 fL (7.4-10.4); Platelet Count 280 K/uL (130-400); RDW Coefficient of Variation 14.1 % (11.5-14.5); RDW Standard Deviation 47.6 fL (36.4-46.3); Red Blood Count 4.15 M/uL (4.2-5.4); White Blood Count 10.36 K/uL (4.8-10.8)
[2019-05-12] MEDS ORDERED: INSULIN ASPART 100 UNITS/ML 3 ML PEN SC SCH (07:30)
[2019-05-12 07:37] LABS: Estimated Average Glucose 157 mg/dl; Hemoglobin A1C 7.1 % (4.5-5.6)
[2019-05-12] MEDS ORDERED: CHOLECALCIFEROL 1,000 UNITS TAB PO SCH (09:00)
[2019-05-12] MEDS ORDERED: MULTIVITAMIN TAB PO SCH (09:00)
[2019-05-12] MEDS ORDERED: TOCOPHERYL, DL-ALPHA 400 UNITS CAP PO SCH (09:00)
[2019-05-12] MEDS ORDERED: BACLOFEN 10 MG TAB PO SCH ×2 (09:00→21:00)
[2019-05-12] MEDS ORDERED: CITALOPRAM 20 MG TAB PO SCH (09:00)
[2019-05-12] MEDS ORDERED: VITAMIN B COMPLEX TAB PO SCH (09:00)
[2019-05-12] MEDS ORDERED: CALCIUM 600MG + VIT D 400 IU TAB PO SCH (09:00)
[2019-05-12] MEDS ORDERED: PANTOprazole 40 MG TAB PO SCH (09:00)
[2019-05-12] MEDS ORDERED: METOPROLOL SUCC 50MG EXT REL TAB PO SCH ×2 (09:00→21:00)
--- NOTE | 2019-05-12 10:17 | Discharge Summary ---
Date of Service May 12, 2019 Admission HPI Per Admitting Provider Ms. Evie Villegas is a 68 year old woman with a past medical history of DMII, HTN, HLD, depression, melanoma, and meningioma who presents for a one day history of abdominal pain, diarrhea, and BRBPR. She woke up this morning around 3 am and noted some mild abdominal pain that became progressively worse. She describes the pain as a squeezing or cramping pain that waxes and wanes. She found it difficult to localize but noted it in her lower abdomen mostly. She began to have diarrhea around 330 am and continued throughout the morning. She noted no blood for the first several episodes, but did start to feel lightheaded after using restroom. She said it felt like she was about to faint and she just laid down on her bed. This resolved and she continued having to use the restroom and eventually she had some bright red blood. She says it was a small collection of it in the toilet bowl maybe half dollar size but difficult to quantify. She mostly noticed it prominently on the toilet paper when she went to wipe. She decided to come in to the emergency department because of the bleeding and continuing abdominal pain. in the emergency department she was found to be tachycardic (though interestingly she says she always is sinus tachycardic at baseline rarely under 100 bpm) but her pressures remained stable. She was given 1 L NSS bolus. Labs showed no major deviation in her hemoglobin from baseline 13.7 [address] scan of the abdomen shows colitis of the large intestine, with several diverticuli present. She otherwise has been well recently, she denies any fevers, chills, nausea or vomiting, breathing difficulties chest pain, shortness of breath, leg swelling, or any other acute or recent symptoms besides the diarrhea, bleeding, abdominal pain, and lightheadedness. Principal Diagnosis Rectal Bleeding, Diarrhea, Colitis of Descending and Sigmoid Discharge Exam Constitutional WD/WN, vitals as above + obese, cooperative and comfortable Eyes + anicteric sclerae and EOM intact bilaterally; no conjunctival abnormality (No pallor) ENMT external ear and nose normal, oropharynx normal Neck normal visual inspection and trachea midline Respiratory normal respiratory effort, lungs clear to auscultation Cardiovascular RRR, no murmur, no edema Gastrointestinal (Abdomen) Inspection/Auscultation: normal bowel sounds; abdomen not distended Percussion/Palpation: abdomen soft; abdomen nontender, no guarding and abdomen not rigid Musculoskeletal Head/Neck/Chest: normocephalic and head atraumatic Skin no rashes, warm and dry no pallor Neurologic moves all extremities and awake Psychiatric A+Ox3, euthymic affect Discharge Data Allergies Allergy/AdvReac Type Severity Reaction Status Date / Time Bactrim AdvReac Mild VOMITING Verified 05/09/16 13:25 erythromycin base AdvReac Mild VOMITING Verified 05/11/19 22:41 morphine AdvReac Mild GI SYMPTOMS Verified 05/11/19 22:41 penicillin G AdvReac Mild VOMITING Verified 05/11/19 22:41 sulfamethoxazole AdvReac Mild VOMITING Verified 05/11/19 22:42 trimethoprim AdvReac Mild VOMITING Verified 04/21/19 13:26 PERCH FISH Allergy Anaphylaxis Uncoded 05/11/19 21:25 Consultations 05/11/19 20:16 ED Decision to Admit Stat 05/11/19 23:24 Consult Gastroenterology Routine Ordered Studies 05/11/19 18:29 CT abd pelvis IV con only Stat 1. Mild thickening and pericolonic fat stranding involving the distal descending colon and sigmoid colon. There are multiple diverticula at this location. However, the long segment bowel wall thickening favors a nonspecific colitis. A diverticulitis could also have a similar appearance but is considered less likely. 2. A 2 mm right lower lobe nodule. Hospital Course (1) Sinus tachycardia: Ms. Villegas is a 68 year old woman with DMII, HTN, and depression here for BRBPR in setting of diarreal illness GI bleed Likely lower GI and infectious in nature with Diarrhea preceding and CT scan showing colitis She did not have any more episodes of diarrhea or bleeding here in hospital. Unable to produce sample. Abdominal cramping has resolved. Notes she had chicken salad sandwhich, possible Campylobacter vs. Salmonella. Hemodynamically stable and appears well. Diarrhea resolved, supportive care. Her Hgb has been stable and WNL, even in setting of donating blood last week. GI was consulted on admission. She has had normal colonoscopy about 3 years ago that was normal, which is reassurring. DMII Was given Insulin here in hospital. Creatinine and kidney function levels WNL Since received IV contrast for CT Abd/Pelvis, hold Metformin for 48 hours on discharge then okay to restart. HTN Holding [id number] continue metoprolol Okay to continue on discharge. Tachycardia Described as sinus tach at baseline On metoprolol but notes she didn't take this yesterday. Has not been hypertensive to signal compensatory process, most likely from not having Metoprolol. Was given IV Fluids here about 2L total of NSS Bolus then was on NSS maintenance fluids on floor. Was monitored on telemetry Pulmonary Nodule Incidentally seen on CT Abd/Pelvis 2 mm right lower lobe nodule. Please refer to below summary of Fleischner criteria recommendations for follow- up of incidental CT nodules (Alicia Foley, Guidelines for management of small pulmonary nodules detected on CT scans: A statement from the Fleischner Society, Radiology 237: [phone].) SOLID NODULES Solitary nodule size: <6 mm * Low risk patients: no follow-up needed F/E/N: bolus 2 L then NSS 80 mls/hour DVT PPx: Contraindicated 2/2 bleeding Dipso: Med-Tele Gi consult stool cultures pending (2) Obesity, morbid, BMI 40.0-49.9: (3) Meningioma: (4) Hypertension: (5) History of malignant melanoma of skin: (6) GERD without esophagitis: (7) Dyslipidemia: (8) Depression with anxiety: (9) Type 2 diabetes mellitus with complications: (10) GI bleed: (11) Hematochezia: (12) Pulmonary nodule less than 6 cm determined by computed tomography of lung: Total Time Total Time Spent Total Time Spent (In Minutes): <30 Total Time Includes: Examination of the Patient, Discharge Planning, Medication Reconciliation and Communication With Other Providers Discharge Plan Discharge Items Patient Disposition: Home - Self-Care Reason For Visit: BRIGHT RED BLOOD PER RECTUM Discharge Diagnosis: Bright red blood per rectum; diarrhea; colitis of descending and sigmoid Activity: Resume your previous activity Non-emergency contact: Primary Care Provider Call non-emergency contact if: you have any medication questions and your symptoms worsen Follow-up/Referrals: Ashely Flores MD [Primary Care Provider] - 05/18/19 11:15 am (Please, follow up with Dr. Teixeira on ThursdayMay 18 at 11:15 am. *If you need to change this appointment, call the office at [phone].) Diet: Carb Consistent or DM2 Addtl Attending Provider Instructions: Please do not take your/hold your Metformin until Monday 05/14. This is because you received IV contrast for your CT Abd/Pelvis imaging study in the ED. This is a precautionary measure to prevent kidney damage that can happen with Metformin is given when you had IV contrast. Please monitor your symptoms. This most likely was an infectious illness you ingested from unknown source, maybe the Chicken in the [employer]. Your body has most likely got rid of the infection as your symptoms have stopped. But, please use proper hand hygiene as you may be able to spread illness even if symptoms have stopped. Please return to your previous diet as tolerated. Avoid acidic foods and maybe adhere to a bland diet for the next couple of days. Most importantly stay well hydrated with clear fluids. Drink a cup of water after your cup of coffee since this can dehydrate you, then continue to push clear fluids to compensate from the fluid you lost from the diarrhea. Your blood counts have been normal which is reassuring especially since you donated blood last week. If symptoms return, you are concerned about bleeding or your symptoms, you can call your Primary Care Provider or return to ED. Also, there was an incidental Pulmonary nodule seen in your left lung base (bottom of left lung), that was found when you had the imaging of your stomach. This was very small and was only 2mm. There is no need for follow up when it is incidentally found and smaller than 6mm. Pending Studies at Discharge: No Stand-Alone Forms: My [facility] LastRoom, Smoking Cessation Medications and DC Order Prescriptions: Continued baclofen 10 mg tablet 10 mg PO DAILY Qty: 90 RF: 3 losartan 50 mg tablet 50 mg PO DAILY Qty: 30 RF: 5 metoprolol succinate [Toprol XL] 50 mg tablet extended release 24 hr 50 mg PO DAILY Qty: 30 RF: 5 citalopram 20 mg tablet 20 mg PO DAILY Qty: 90 RF: 3 omeprazole 20 mg capsule,delayed release(DR/EC) 20 mg PO HS Qty: 30 RF: 5 metformin 500 mg tablet,ER harry.retention 24 hr 1,000 mg PO BID RF: 0 montelukast 10 mg tablet 10 mg PO QPM RF: 0 Novolin N NPH U-100 Insulin 100 unit/mL suspension 44 units SQ QPM RF: 0 Novolin R Regular U-100 Insuln 100 unit/mL solution 15 - 30 units SQ TIDM RF: 0 tramadol 50 mg tablet 50 mg PO QPM PRN (Reason: pain) RF: 0 Victoza 2-Paco 0.6 mg/0.1 mL (18 mg/3 mL) pen injector 1.2 mg SQ DAILY RF: 0 aspirin [Adult Aspirin Regimen] 81 mg tablet,delayed release (DR/EC) 81 mg PO DAILY RF: 0 calcium carbonate [Calcium 600] 600 mg calcium (1,500 mg) tablet 600 mg PO BID RF: 0 coenzyme Q10 100 mg capsule 100 mg PO DAILY RF: 0 glucosamine HCl 1,500 mg tablet 1,500 mg PO DAILY RF: 0 lutein 20 mg tablet 20 mg PO DAILY RF: 0 multivitamin tablet 1 tab PO DAILY RF: 0 omega-3 fatty acids 1,000 mg capsule 1,000 mg PO DAILY RF: 0 vitamin B complex tablet 1 tab PO DAILY RF: 0 cholecalciferol (vitamin D3) 1,000 unit capsule 2,000 units PO DAILY RF: 0 vitamin E (dl, acetate) 400 unit capsule 400 units PO DAILY RF: 0 No Action atorvastatin [Lipitor] 20 mg tablet 20 mg PO QPM Qty: 90 RF: 3 Discharge Orders: Discharge Order (Routine); Ordered 05/12/19 Ordered By: Russ Godinez Admission Data Admit Date/Time: 05/11/19 22:09 Attending Provider: Greg Yin Admit Provider: Buck Richard Primary Care Provider: Ashely Flores V. Other Providers: Deshaun Vela ; Jerome Lopez Other Interventions: Discharge Summary Assessment (RN) Last Done: 05/12/19 13:41 DC Date/Time DO NOT enter until pt leaves facility: 05/12/19 14:10 Supervising Physician Co-Signing Physician Notes I personally examined the patient and verified all johnston points of history and exam, discussed case, and agree with decision making with Dr Godinez. Feeling better. No further diarrhea. No further bleeding. Overall doing well. Vitals noted, in general she is awake and alert pleasant no distress. HEENT normocephalic atraumatic mucous membranes are moist. Breathing unlabored no accessory muscle use good effort. Skin shows no rashes no pallor or icterus. Colitisappears to have been infectious. Given that the bleeding was after about a dozen bouts of diarrhea, and seemed to be separate from the bowel movements, I suspect that the profuse diarrhea and overall situation irritated either rectal mucosa or hemorrhoids leading to the bleeding. feeling up to going home. safe/stable for home, outpt f/u. otherwise as above Resident Activity Tracking Resident Involvement: Resident Care Provided Care Provided: Adult Hospital Medicine
--- NOTE | 2019-05-12 10:38 | Pharmacy Report ---
Glycemic Control Consultation - Date of Service May 12, 2019 - Scope Scope: Glycemic Pharmacist consulted by Dr Shraddha Moe on 05/12 for glycemic control and to write orders per [facility] inpatient glycemic control protocol - Objective Weight: 115 kg Accuchecks BSG (last 24hrs): 05/11/19 05/12/19 05/12/19 18:47 00:35 06:10 Glucose 173 H POC Glucose 175 H 149 H Laboratory Data (last 24hrs): 05/11/19 18:47 Potassium 4.1 Carbon Dioxide 26 Anion Gap 6.0 Creatinine 0.84 Est Cr Clr Drug Dosing 77.9 HbA1c: Hemoglobin A1c 7.1 % (4.5-5.6) H 05/12/19 06:27 - Recent Pertinent Medications Outpatient Anti-diabetic Regimen: * NPH 44 units QPM, Regular 15-30 units TIDM (per scale patient has at home), Metformin 1000 mg BID , Liraglutide 1.2mg daily * A1c = 7.1 % 05/12/19 The patient is currently receiving: * Correctional Insulin: Novolog Correction per scale ACHS Goal Range: Low 120 mg/dL - High 150 mg/dL Correction Factor: 30 mg/dL/unit * Prandial insulin: Per carb ratio of 1 unit per 10 grams CHO consumed * Oral Agents: Risk Factors for Insulin Resistance: * Steroids: * Infection: * Pressors: * IVF: * Recent Surgery * Diet: NPO --> T2DM * Mechanical Ventilation: - Assessment & Plan Assessment & Plan: ASSESSMENT: * Ms. Villegas is admitted following episodes of bloody stool/tachycardia * Blood sugar 173 on admission, down to 149 this morning. * Discussed outpatient regimen with patient, she reports that she had a low (~50) when the diarrhea began but then had been in the 160s. She took 22 units of regular insulin with dinner last night but did not take her evening NPH while here in the hospital. Patient was NPO. * Diet to start with lunch, will tighten CF/CR to weight based stress of 2 dosing, this is also a middle between the low and high end of her estimated needs based on her outpatient regimen. * Did hold long acting/intermediate insulin this morning as patient was still NPO. * Patient to be discharged/consult to be discontinued. Patient can likely resume home regimen. PLAN FOR INPATIENT GLYCEMIC CONTROL: * Holding outpatient oral diabetes medications * Bolus insulin * NovoLog per scale ACHS or Q6hrs while NPO * Goal Range: Low 120 mg/dL - High 150 mg/dL * Correction Factor: 20 mg/dL/unit * Nutritional / Prandial insulin per carb ratio of 1 unit per 7 grams CHO consumed * Please note that the plan above was derived based on current level of insulin resistance and hospital stress. These recommendations are appropriate for inpatient admission only. Plan of care upon discharge will need to be reassessed to avoid potential outpatient hypo/hyperglycemia. Thank you.
[2019-05-12] MEDS ORDERED: Nursing to Pharmacy Communication ONE (10:40)
--- NOTE | 2019-05-12 17:49 | Billing Data ---
Date of Service May 12, 2019 Coding Level of Care Code D/C Day Management <30 mins
[2019-05-12] MEDS ORDERED: MONTELUKAST SODIUM 10 MG TABLET PO SCH (21:00)
[2019-05-12] MEDS ORDERED: ATORVASTATIN 20 MG TAB PO SCH (21:00)
== END 2019-05-12 14:10 | disposition home or self-care (01) | DRG 372 ==
LOC: ED 18:11 → SUATTDRO 22:09 → 2N 22:09